=== PATIENT | male | born 1985 | race Caucasian/White ===

== ENCOUNTER 2020-12-29 20:13 | Emergency (ER) | payer BC ==
[2020-12-29] MEDS ORDERED: Ketorolac 30 MG/ML SDV IVPUSH ONE (21:19)
[2020-12-29] MEDS ORDERED: Sodium Chloride 0.9% 10 ML Syringe FLUSH PRN (21:19)
[2020-12-29] MEDS ORDERED: Sodium Chloride 0.9% 1,000 ML IV ONE (21:19)
--- NOTE | 2020-12-29 22:01 | EDM.PDOC ---
ED HPI GENERAL MEDICAL PROBLEM - General Chief Complaint: Allergic Reaction Stated Complaint: ADVERSE REACTION TO COVID VACCINE Time Seen by Provider: 12/29/20 20:49 Source of Information: Reports: Patient History Limitations: Reports: No Limitations - History of Present Illness INITIAL COMMENTS - FREE TEXT/NARRATIVE: Patient is a 35-year-old male who complains of having an adverse reaction to his Covid shot which was 2 days ago. Patient had 2 days of fever chills and was achy all over and now today he feels somewhat restless and feels muscle cramps on his torso on both upper arms. He denies any paresthesias. He states he is unable to sleep secondary to his restlessness. He denies any nausea vomiting diarrhea. He states he has been able to keep well-hydrated. He has no headache. He denies any current fever or chills or myalgias of his lower extremities. Patient is taking nothing for his current symptoms. Duration: Day(s): (two), Waxing/Waning Other Treatments EQUIPMENT MECHANIC: Aleve Bilateral Generalized Pain Score (Numeric/FACES): 3 - Related Data Allergies Allergy/AdvReac Type Severity Reaction Status Date / Time No Known Allergies Allergy Verified 12/29/20 20:46 Home Meds: Home Meds Dextroamphetamine/Amphetamine [Adderall 20 mg Tablet] 20 mg PO BID 12/29/20 [History] Past Medical History HEENT History: Reports: None Cardiovascular History: Reports: None Respiratory History: Reports: None Gastrointestinal History: Reports: None Genitourinary History: Reports: None Musculoskeletal History: Reports: None Neurological History: Reports: None Psychiatric History: Reports: ADD Endocrine/Metabolic History: Reports: None Hematologic History: Reports: None Immunologic History: Reports: None Oncologic (Cancer) History: Reports: None Dermatologic History: Reports: None - Infectious Disease History Infectious Disease History: Reports: None - Past Surgical History Head Surgeries/Procedures: Reports: None HEENT Surgical History: Reports: Adenoidectomy, Tonsillectomy Social & Family History - Caffeine Use Caffeine Use: Reports: Coffee Caffeine Use Comment: one cup daily - Recreational Drug Use Recreational Drug Use: No ED ROS ALLERGIC REACTION - Review of Systems Review Of Systems: Comprehensive ROS is negative, except as noted in HPI. Constitutional: Reports: Malaise, Fatigue. Denies: Fever, Chills HEENT: Reports: No Symptoms Respiratory: Reports: No Symptoms Cardiovascular: Reports: No Symptoms GI/Abdominal: Reports: No Symptoms. Denies: Abdominal Pain, Nausea, Vomiting : Reports: No Symptoms Musculoskeletal: Reports: Other (Achiness to his torso back and upper arms. Marion ledesma is feeling restless.) ED EXAM GENERAL NO PERIP PULSE - Physical Exam Exam: See Below Exam Limited By: No Limitations General Appearance: Alert, No Apparent Distress Head: Atraumatic, Normocephalic Neck: Normal Inspection, Supple Respiratory/Chest: No Respiratory Distress, Lungs Clear Cardiovascular: Regular Rate, Rhythm GI/Abdominal: Normal Bowel Sounds Back Exam: Normal Inspection. No: CVA Tenderness (L), CVA Tenderness (R) Extremities: Normal Inspection Neurological: Alert, Oriented Psychiatric: Anxious Skin Exam: Warm, Dry Course - Vital Signs Text/Narrative:: Patient is feeling somewhat better after liter fluid and some Toradol. His electrolytes and CBC are unremarkable. I am discharging him home with a prescription for some lorazepam and instructions to keep up with p.o. fluids. He may return to emergency department if feeling worse. Follow-up with his PCP if not improving. Last Recorded V/S: Last Vital Signs Temp 96.2 F L 12/29/20 20:36 Pulse 89 12/29/20 20:36 Resp 16 12/29/20 20:36 BP 152/102 H 12/29/20 20:36 Pulse Ox 97 12/29/20 20:36 - Orders/Labs/Meds Orders: Active Orders 24 hr Category Date Time Status Peripheral IV Care [RC] . DIRECTED Care 12/29/20 21:20 Active CBC WITH MANUAL DIFF [HEME] Stat Lab 12/29/20 21:28 Results Sodium Chloride 0.9% [Saline Flush] Med 12/29/20 21:19 Active 10 ml FLUSH ASDIRECTED PRN Peripheral IV Insertion Adult [OM.PC] Routine Oth 12/29/20 21:19 Ordered Medication Orders Sodium Chloride (Sodium Chloride 0.9% 10 Ml Syringe) 10 ml FLUSH ASDIRECTED PRN PRN Reason: Keep Vein Open Last Admin: 12/29/20 22:18 Dose: 10 ml Documented by: MARE Labs: Laboratory Tests 12/29/20 12/29/20 Range/Units 21:28 21:28 WBC 10.32 H (4.23-9.07) K/mm3 RBC 4.76 (4.63-6.08) M/mm3 Hgb 14.9 (13.7-17.5) gm/dl Hct 42.8 (40.1-51.0) % MCV 89.9 (79.0-92.2) fl MCH 31.3 (25.7-32.2) pg MCHC 34.8 (32.2-35.5) g/dl RDW Std Deviation 40.9 (35.1-43.9) fL Plt Count 263 (163-337) K/mm3 MPV 8.7 L (9.4-12.3) fl Sodium 140 (136-145) mEq/L Potassium 3.7 (3.5-5.1) mEq/L Chloride 104 (98-107) mEq/L Carbon Dioxide 29 (21-32) mEq/L Anion Gap 10.7 (5-15) BUN 7 (7-18) mg/dL Creatinine 1.0 (0.7-1.3) mg/dL Est Cr Clr Drug Dosing 113.17 mL/min Estimated GFR (MDRD) > 60 (>60) mL/min BUN/Creatinine Ratio 7.0 L (14-18) Glucose 132 H (70-99) mg/dL Calcium 8.8 (8.5-10.1) mg/dL Total Bilirubin 1.1 H (0.2-1.0) mg/dL AST 26 (15-37) U/L ALT 48 (16-63) U/L Alkaline Phosphatase 48 (46-116) U/L Total Protein 7.1 (6.4-8.2) g/dl Albumin 3.8 (3.4-5.0) g/dl Globulin 3.3 gm/dL Albumin/Globulin Ratio 1.2 (1-2) Meds: Medications Generic Name Dose Route Start Last Admin Trade Name Freq PRN Reason Stop Dose Admin Sodium Chloride 10 ml 12/29/20 21:19 12/29/20 22:18 Sodium Chloride 0.9% 10 Ml Syringe FLUSH 10 ml ASDIRECTED PRN Administration Keep Vein Open Discontinued Medications Generic Name Dose Route Start Last Admin Trade Name Freq PRN Reason Stop Dose Admin Sodium Chloride 1,000 mls @ 1,000 mls/hr 12/29/20 21:19 12/29/20 21:47 Normal Saline IV 12/29/20 22:18 1,000 mls/hr ONETIME ONE Administration Ketorolac Tromethamine 30 mg 12/29/20 21:19 12/29/20 21:47 Ketorolac 30 Mg/Ml Sdv IVPUSH 12/29/20 21:20 30 mg ONETIME ONE Administration Departure - Departure Time of Disposition: 22:41 Disposition: Home, Self-Care 01 Condition: Good Clinical Impression: Flu-like symptoms - Discharge Information *PRESCRIPTION DRUG MONITORING PROGRAM REVIEWED*: No Referrals: Orlin Singh MD [Primary Care Provider] - Forms: ED Department Discharge Additional Instructions: Increase fluids. Tylenol and ibuprofen as needed. Lorazepam as needed. Return to ER symptoms are worse. Follow-up with PCP if not improving. Sepsis Event Note (ED) - Focused Exam Vital Signs: Vital Signs Temp Pulse Resp BP Pulse Ox 12/29/20 20:36 96.2 F L 89 16 152/102 H 97 - My Orders Last 24 Hours: My Active Orders 12/29/20 21:19 Sodium Chloride 0.9% [Saline Flush] 10 ml FLUSH ASDIRECTED PRN Peripheral IV Insertion Adult [OM.PC] Routine 12/29/20 21:20 Peripheral IV Care [RC] . DIRECTED 12/29/20 21:28 CBC WITH MANUAL DIFF [HEME] Stat - Assessment/Plan Last 24 Hours: My Active Orders 12/29/20 21:19 Sodium Chloride 0.9% [Saline Flush] 10 ml FLUSH ASDIRECTED PRN Peripheral IV Insertion Adult [OM.PC] Routine 12/29/20 21:20 Peripheral IV Care [RC] . DIRECTED 12/29/20 21:28 CBC WITH MANUAL DIFF [HEME] Stat
== END 2020-12-29 22:55 | disposition home or self-care (01) ==
LOC: JD.ED 20:13
DX: J11.1 Influenza due to unidentified influenza virus with other respiratory manifestations (principal)
CPT/HCPCS: 36415; 80053; 85007; 85027; 96374; 99283; J1885; J7030; 99284